=== PATIENT | female | born 1955 | race Caucasian/White ===

== ENCOUNTER → 2024-11-03 | Outpatient (CLI) | payer MEDICARE ==
--- NOTE | 2024-11-10 09:14 | HMCIMG ---
CLINICAL INDICATION: Age-related osteoporosis without current pathological fracture COMPARISON: None available TECHNIQUE: Bone densitometry is performed of the lumbar spine and left hip. FINDINGS: Total BMD of lumbar spine is 1.185 g/cm2 with a T-score of 1.3 and Z-score is 3.4. Total BMD of left hip is 0.985 g/cm2 with a T-score of 0.4 and Z-score is 1.9. FRAX SCORE: The 10 year fracture risk for a major osteoporotic fracture and hip fracture NOT reported because all T-scores at or above -1.0 IMPRESSION: 1. Normal lumbar spine and left hip 2. I would recommend annual follow. World Health Organization criteria for BMD interpretation classify patients as Normal (T-score at or above -1.0), Osteopenic (T-score between -1.0 and -2.5), or Osteoporotic (T-score at or below -2.5). FRAX SCORE: A. All treatment decisions require clinical judgment and consideration of individual patient factors, including patient preferences, comorbidities, previous drug use, risk factors not captured in the FRAX model (e.g., frailty, falls, vitamin D deficiency, increased bone turnover, interval significant decline in bone density) and possible [id number]-estimation of fracture risk by FRAX. B. In addition, the NOF Guide recommends that FDA-approved medical therapies be considered in postmenopausal women and men age greater than or equal to 50 years with a: i. Hip or vertebral (clinical or morphometric) fracture. ii. T-score of less than or equal to -2.5 at the spine or hip. iii. Ten-year fracture probability by FRAX of greater than or equal to 3% for hip fracture of greater than or equal to 20% for major osteoporotic fracture.
--- NOTE | 2024-11-10 16:11 | HMCIMG ---
DIGITAL BILATERAL SCREENING MAMMOGRAM Technique: The digital mammographic examination of both breasts in craniocaudal and mediolateral oblique views along with CAD was obtained. History: This is a 69 years year-old female 3, para2 Ab1. Patient has maternal aunt, paternal aunt, and paternal grandmother with family history of breast cancer. Patient has no complaint Reference:None available/baseline. Breast composition: Breast composition D: The breasts are extremely dense, which lowers the sensitivity of mammography. Finding: The digital mammographic examination of both breasts in craniocaudal and mediolateral oblique view along with CAD demonstrates both breasts to BE dense nodular changes in the subareolar region.. There is no evidence of any dendritic mass, cluster microcalcification or architectural distortion. The retromammary fat appears to be normal. IMPRESSION: Due to dense breast in the subareolar region. I would recommend a baseline bilateral breast sonogram.. FINAL ASSESSMENT: ACR: BI-RAD -0. Incomplete: need additional imaging evaluation. Management: Recall for additional imaging and/or comparison with prior examination(s). Likelihood of Cancer: N/A NOTE: IF A WORK-UP OF THIS PATIENT LEADS TO A BIOPSY, PLEASE FORWARD A COPY OF THE PATHOLOGY REPORT TO OUR OFFICE REQUIRED BY [facility] EFFECTIVE DECEMBER 30, 1993. A NEGATIVE MAMMOGRAM SHOULD NOT PRECLUDE BIOPSY OF A CLINICALLY PALPABLE SUSPICIOUS MASS, 10% OF BREAST CANCERS ARE MAMMOGRAPHICALLY OCCULT. THIS MAMMOGRAPHY FACILITY IS FULLY ACCREDITED BY THE FOOD AND DRUG ADMINISTRATION (FDA). THANK YOU FOR THIS REFERRAL.
== END | disposition home or self-care (01) ==
LOC: RAH 14:52
PROVIDERS: ATTEND Internal Medicine
DX: Z12.31 Encounter for screening mammogram for malignant neoplasm of breast (principal); M81.0 Age-related osteoporosis without current pathological fracture; R92.343 Mammographic extreme density, bilateral breasts
CPT/HCPCS: 77067; 77080

== ENCOUNTER → 2024-12-04 | Outpatient (CLI) | payer MEDICARE ==
--- NOTE | 2024-12-08 08:24 | HMCIMG ---
BILATERAL BREAST ULTRASOUND: CLINICAL HISTORY: Follow-up for mammogram due to dense breasts from 12/04/2024 Finding: Real-time examination of the both breasts demonstrates heterogeneous echotexture throughout both the breasts without evidence of focal solid or cystic masses. Both breasts has ductal ectasia seen. The right axillary region there is a benign lymph node measuring 1.0 x 0.6 x 1.1 cm, 0.7 x 0.6 x 0.9 cm, 0.6 x 0.4 x 0.6 cm. The left axilla has small for benign lymph nodes the largest measuring 1.0 x 0.6 x 1.4 cm. IMPRESSION: Dense breasts with no mass or cyst. I would recommend annual mammography with tomography with bilateral breast sonogram. FINAL ASSESSMENT: ACR: BI-RAD -0. Incomplete: need additional imaging evaluation. Management: Recall for additional imaging and/or comparison with prior examination(s). Likelihood of Cancer: N/A
--- NOTE | 2024-12-12 10:58 | HMCIMG ---
US SOFT TISSUE NECK HISTORY: Enlarged lymph nodes, unspecified TECHNIQUE: Real-time thyroid ultrasound was performed. Left neck and left supraclavicular region. FINDINGS: Ultrasound of the left neck and supraclavicular region demonstrated multiple small lymph nodes seen along the left neck extending to left supraclavicular region. The largest of this measuring 0.9 x 0.5 x 0.9 cm.. IMPRESSION: Left neck multiple small benign-appearing reactive lymph nodes the largest of this measuring 0.9 x 0.5 x 0.9 cm base of the left neck.
== END | disposition home or self-care (01) ==
LOC: RAH 13:03
PROVIDERS: ATTEND Internal Medicine
DX: R92.333 Mammographic heterogeneous density, bilateral breasts (principal); R92.8 Other abnormal and inconclusive findings on diagnostic imaging of breast; R59.0 Localized enlarged lymph nodes
CPT/HCPCS: 76536